=== PATIENT | female | born 1955 | race Caucasian/White ===

== ENCOUNTER → 2021-01-23 12:35 | Outpatient (CLI) | payer OTHER, SELFPAY ==
--- NOTE | 2021-01-23 | DI.RAD.S_ITS ---
PROCEDURE: XR UPPER GI & SBFT INDICATIONS: Generalized abdominal pain COMPARISON: None. FINDINGS: KUB: Preprocedural glove cuffer film shows mildly distended bowel loops in the mid abdomen with a few air-fluid levels, nonspecific. There is relative paucity of colonic gas. No suspicious abdominal calcifications. Visualized solid organ contours appear normal in size. No suspicious bony abnormalities. Esophagus: Air-contrast views demonstrate a normal mucosal pattern. On single-contrast views, there is normal peristalsis. No fixed strictures, extrinsic mass effects, or diverticula. There is a small hiatal hernias. Mild gastroesophageal reflux was present. There is normal transit of a calibrated barium tablet through the esophagus. Stomach: The gastric lumen is normally distensible, and has normal rugal fold thickness. No mucosal masses or ulcers. The pylorus and duodenal bulb have a normal morphology. Small bowel: Duodenal folds appear normal in thickness. There is normal transit time of barium through the small intestine. Small bowel loops appear normal in caliber throughout. Jejunal and ileal folds are smooth and normal in thickness. No strictures, intraluminal masses, or extrinsic mass effects. The terminal ileum is identified and appears normal. IMPRESSION: 1. Small hiatal hernia. 2. Mild gastroesophageal reflux. 3. Normal small bowel follow-through. Dictated by: Eric Le M.D. on 01/23/2021 at 15:13 Approved by: Eric Le M.D. on 01/23/2021 at 17:52
== END ==
PROVIDERS: PCP Nurse Practitioner; Referring Provider Surgery; Visit Provider Surgery
DX: R10.84 Generalized abdominal pain (principal); K44.9 Diaphragmatic hernia without obstruction or gangrene; K21.9 Gastro-esophageal reflux disease without esophagitis
CPT/HCPCS: 74246; 74248